=== PATIENT | female | born 1965 | race African-American/Black ===

== ENCOUNTER 2024-03-26 09:35 | Outpatient (CLI) | payer BC, SELFPAY ==
--- NOTE | ~2024-03-26 | MMUS_ITS ---
EXAMINATION: MM diagnostic bradley BI w valeria, US breast BI complete HISTORY: Bloody left nipple discharge. TECHNIQUE: Additional 3-D tomosynthesis images of the breasts were performed and synthetic 2-D images were generated. CAD analysis was submitted and interpreted. High resolution bilateral complete breas t ultrasound was performed. COMPARISON: Comparison to multiple prior studies sequentially, with oldest reviewed study dated 09/27. BREAST PARENCHYMAL COMPOSITION: Not dense: There are scattered areas of fibroglandular density. FINDINGS: MAMMOGRAPHIC FINDINGS: There are no suspicious masses, calcifications or architectural distortion in the right breast to sug gest malignancy. There is a stable 1 cm mass in the upper outer quadrant of the left breast with circ umscribed margins and peripheral calcification, consistent with a benign entity. There is architectur al distortion medial to the left nipple on CC view which is not significantly changed from prior stud ies. There is questionable skin thickening surrounding the nipple. ULTRASOUND: Complete bilateral US of all 4 quadrants of the breasts and retroareolar region was reviewed. Right breast: Normal heterogeneous echotexture without focal solid or cystic mass. Left breast: At 2:00, 7 cm from the nipple there is an oval hypoechoic 9 mm mass with posterior shado wing. This corresponds to the stable mass seen on mammography. In the subareolar location there is he terogeneous skin thickening, nonspecific. IMPRESSION: 1. Heterogeneous skin thickening in the left breast in the subareolar location. 2. Recommend further evaluation with either surgical puncture biopsy or further evaluation with MRI o f the breast with contrast. BI-RADS CATEGORY 4-SUSPICIOUS ABNORMALITY Reviewed, dictated and finalized at location B. IMPRESSION: 1. Heterogeneous skin thickening in the left breast in the subareolar location. 2. Recommend further evaluation with either surgical puncture biopsy or further evaluation with MRI of the breast with contrast. BI-RADS CATEGORY 4-SUSPICIOUS ABNORMALITY
== END 2024-03-26 09:36 | disposition home or self-care (01) ==
PROVIDERS: PCP Nurse Practitioner; Visit Provider Nurse Practitioner
DX: N64.52 Nipple discharge (principal); R92.8 Other abnormal and inconclusive findings on diagnostic imaging of breast
CPT/HCPCS: 76641; 77062; 77066; G0279